=== PATIENT | female | born 1975 | race Caucasian/White ===

== ENCOUNTER 2018-02-23 08:00 | Emergency (ER) | payer MEDICAID ==
[~2018-02-23] VITALS: Ht 147.3 cm; Wt 35.6 kg
[2018-02-23 08:03] VITALS: Ht 147.3 cm; Wt 35.6 kg
[2018-02-23 09:27] VITALS: BP 101/70
== END 2018-02-23 09:27 | disposition home or self-care (01) ==
LOC: ED 08:00
DX: L02.413 Cutaneous abscess of right upper limb (principal); L03.113 Cellulitis of right upper limb
CPT/HCPCS: J2001

== ENCOUNTER 2018-02-25 09:29 | Emergency (ER) | payer MEDICAID ==
[2018-02-25 09:39] VITALS: BP 107/58
== END 2018-02-25 10:16 | disposition home or self-care (01) ==
LOC: ED 09:29
DX: Z48.01 Encounter for change or removal of surgical wound dressing (principal); E05.90 Thyrotoxicosis, unspecified without thyrotoxic crisis or storm